=== PATIENT | female | born 1955 | race Caucasian/White ===

== ENCOUNTER 2017-05-17 06:31 | Day surgery (SDC) | payer BC ==
[2017-05-17] MEDS ORDERED: Dextrose 5%-Lactated Ringers 1,000 ML IV SCH (06:45)
[2017-05-17] MEDS ORDERED: Propofol 200 MG/20 ML SDV ONE (06:56)
[2017-05-17] MEDS ORDERED: fentaNYL 100 MCG/2 ML SDV ONE (06:56)
[2017-05-17] MEDS ORDERED: Midazolam 1 MG/ML 2 ML SDV ONE (06:56)
[2017-05-17] MEDS ORDERED: Linezolid 600 MG in Premix Bag 1 BAG IV ONE (07:15)
[2017-05-17] MEDS ORDERED: Bupivacaine 0.5% 50 ML MDV ONE (08:38)
[2017-05-17] MEDS ORDERED: Lidocaine 1% with EPINEPHrine 1:100,000 50 ML MDV ONE (08:38)
--- NOTE | 2017-05-17 09:06 | CR ---
OR [id number] Filter INDICATION: INSERTION OF CENTRAL VENOUS CATHETER FINDINGS: Fluoroscopy utilized.
--- NOTE | 2017-05-18 16:04 | OR ---
DATE OF PROCEDURE: 05/17/2017 PREOPERATIVE DIAGNOSIS: Indications for central venous access. POSTOPERATIVE DIAGNOSIS: Indications for central venous access. OPERATIVE PROCEDURE: Placement of Bard PowerPort via left subclavian vein approach (25520). ANESTHESIA: Local plus IV sedation. INDICATIONS FOR PROCEDURE: This is a 61-year-old female with metastatic adenoid cystic carcinoma undergoing chemotherapy, to facilitate vascular access, a port to be placed. Potential risks including bleeding, infection, problems with the port becoming occluded or infected and the possibility of pneumohemothorax or vascular injury during insertion were reviewed, and the patient wishes to proceed. DETAILS OF PROCEDURE: The patient was taken to the operating room and placed in the supine position. After IV sedation was administered, the upper chest and neck areas were prepped and draped. The left subclavian vein was then cannulated and guidewire manipulated from there into the superior vena cava. Some additional local anesthetic was then injected and a transverse infraclavicular incision was made and carried down through the skin and subcutaneous tissue through the pectoralis major fascia and the plane behind the pectoralis major fascia, then the Bard PowerPort was placed. The catheter was then cut such that the tip would lie in the area around the superior vena cava, right atrial junction over the introducer and peel-away catheter. The Bard port catheter was then placed without difficulty. Good in and outflow was noted. The ports were flushed with heparinized saline, was also accessed to facilitate treatment tomorrow. The incision was then closed with 2 layers of 3-0 Vicryl stitch deep and a 4-0 Vicryl subcuticular stitch. Dressing was applied. There were no evident complications. The patient was taken to the recovery room in satisfactory condition. Adalberto Donald MD /[id number]
== END 2017-05-17 10:18 | disposition home or self-care (01) ==
LOC: JP.SDS 06:31
PROVIDERS: ATTEND Surgery
DX: Z45.2 Encounter for adjustment and management of vascular access device (principal); C08.0 Malignant neoplasm of submandibular gland; Z98.890 Other specified postprocedural states
CPT/HCPCS: 36561; J1642; J2020; J2250; J2704; J3010; J7042; C1788